=== PATIENT | male | born 1985 | race Caucasian/White ===

== ENCOUNTER 2016-05-18 09:11 | Emergency (ER) | payer BC ==
[2016-05-18 09:32] VITALS: BP 122/70
--- NOTE | 2016-05-18 11:03 | RAD ---
HISTORY: Chronic cough COMPARISONS: None VIEWS: 2: Frontal dual-energy and lateral views of the chest. FINDINGS: CARDIOMEDIASTINAL SILHOUETTE: The cardiomediastinal silhouette is normal. PK: The pk are normal. PLEURA: The costophrenic angles are sharp. No pleural abnormalities are noted. LUNG PARENCHYMA: The lungs are clear. ABDOMEN: The upper abdomen is clear. There is no subphrenic gas. BONES AND SOFT TISSUES: No bone or soft tissue abnormalities are noted. OTHER: None. IMPRESSION: NO ACTIVE CARDIOPULMONARY DISEASE.
--- NOTE | 2016-05-18 11:39 | UC ---
Respiratory Complaint HPI - HPI Summary HPI Summary: PT WITH OVER 6 MONTH OF CHRONIC DRY COUGH. NO OTHER RESP SX. NO CONGESTION, ST, WHEEZE. NON SMOKER. ALSO C/O INTERMITTENT NAUSEA. FEELS LIKE "HIS STOMACH IS POISONED". NO FEVER. NO ASSOCIATION WITH FOOD. HAS REFLUX BUT STATES THIS FEELS DIFFERENT. 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 - History of Current Complaint Chief Complaint: UCGeneralIllness Stated Complaint: CHEST CONGESTION, AND COUGH Time Seen by Provider: 05/18/16 10:20 Hx Obtained From: Patient Onset/Duration: Gradual Onset, Lasting Weeks, Still Present Timing: Intermittent Episodes Severity Initially: Moderate Severity Currently: Moderate Pain Intensity: 0 Pain Scale Used: 0-10 Numeric Character: Cough: Nonproductive Aggravating Factors: Nothing Alleviating Factors: Nothing Associated Signs And Symptoms: Negative: Dyspnea, Fever, Chills, Pleuritic Chest Pain, Wheezing, Hemoptysis, Dizziness, Calf Pain, Calf Swelling, Nasal Congestion, Hoarseness, Sinus Discomfort - Allergies/Home Medications Allergies/Adverse Reactions: Allergies Allergy/AdvReac Type Severity Reaction Status Date / Time Lactose Intolerance (GI) Allergy GI Upset Verified 05/18/16 09:33 Home Medications: Home Medications Ranitidine HCl [Zantac 75] 75 mg PO DAILY 05/18/16 [History Confirmed 05/18/16] PMH/Surg Hx/FS Hx/Imm Hx Endocrine History Of: Denies: Diabetes, Thyroid Disease Cardiovascular History Of: Denies: Cardiac Disorders, Hypertension Respiratory History Of: Reports: Asthma Denies: COPD GI/ History Of: Denies: Ulcer - Surgical History Surgical History: None - Family History Known Family History: Negative: Cardiac Disease, Hypertension, Diabetes - Social History Alcohol Use: None Substance Use Type: None Smoking Status (MU): Never Smoked Tobacco Review of Systems Constitutional: Negative Respiratory: Cough Cardiovascular: Negative Gastrointestinal: Abdominal Pain, Other - NAUSEA All Other Systems Reviewed And Are Negative: Yes Physical Exam Triage Information Reviewed: Yes Appearance: Well-Appearing, No Pain Distress, Well-Nourished Vital Signs: Initial Vital Signs Temp 98.1 F 05/18/16 09:26 Pulse 64 05/18/16 09:26 Resp 16 05/18/16 09:26 BP 122/70 05/18/16 09:26 Pulse Ox 98 05/18/16 09:26 Vital Signs Reviewed: Yes Eyes: Positive: Conjunctiva Clear ENT: Positive: Hearing grossly normal, Pharynx normal, TMs normal Neck: Positive: Supple, Nontender, No Lymphadenopathy Respiratory Exam: Normal Cardiovascular Exam: Normal Abdomen Description: Positive: Nontender, Soft. Negative: CVA Tenderness (R), CVA Tenderness (L), Distended, Guarding Bowel Sounds: Positive: Present Musculoskeletal: Positive: No Edema Neurological: Positive: Alert Psychological: Positive: Age Appropriate Behavior Skin: Negative: rashes UC Diagnostic Evaluation - Laboratory O2 Sat by Pulse Oximetry: 98 Respiratory Course/Dx - Course Course Of Treatment: DUE TO LANGUAGE BARRIER EXTREMELY DIFFICULT TO OBTAIN DETAILED HISTORY FROM PATIENT. OFFERED TO USE HAIR SALON MANAGER SERVICE AND HE DECLINED. WILL TEST AND TREAT TO COVER POSSIBLE PERTUSSIS. ALBUTEROL INHALER NEEDED. FOLLOW-UP WITH PCP. REVIEWED US FROM 12/03/15. PT WITH BENIGN APPEARING HEMANGIOMA IN LIVER. NEEDS 6 MONTH FOLLOW-UP US. ADVISED PT TO SCHEDULE THIS THROUGH PCP OR GI. REFERRED TO GI FOR FURTHER EVAL OF ABD PAIN. - Differential Dx/Diagnosis Provider Diagnoses: 1. CHRONIC COUGH. 2. ABDOMINAL PAIN, NOS Discharge - Discharge Plan Condition: Stable Disposition: HOME Prescriptions: Albuterol HFA INHALER* [Ventolin HFA Inhaler*] 2 puff INH Q4H PRN #1 mdi PRN Reason: Shortness Of Breath Azithromyxin CHRISTIAN (NF) [Z-Christian (Zithromax) 250 mg tabs #6] 2 tab PO .TODAY, THEN 1 DAILY #6 tab Patient Education Materials: Chronic Cough (ED), Abdominal Pain (ED) Referrals: Matthew Christensen MD [Medical Doctor] - 2 Weeks Max Blake MD [Primary Care Provider] - 1 Week Additional Instructions: SWAB FOR PERTUSSIS DONE TODAY GIVEN YOUR CHRONIC COUGH. WILL TX WITH AZITH AND INHALER. CHEST XRAY WAS UNREMARKABLE. FOLLOW-UP WITH YOUR PRIMARY DOCTOR. YOU MAY BENEFIT FROM LUNG FUNCTION TESTING. CALL DR. CHRISTENSEN (GI) FOR AN APPT IN THE NEXT 2-3 WEEKS TO EVALUATE FOR YOUR CONTINUED ABDOMINAL PAIN. BE SURE TO SCHEDULE THE FOLLOW-UP ULTRASOUND TO RE-EVALUATE THE LESION IN YOUR LIVER SEEN ON ULTRASOUND IN 2015. THIS COULD BE ORDERED BY EITHER YOUR PRIMARY DOCTOR OR THE GI DOCTOR.
== END 2016-05-18 11:38 | disposition home or self-care (01) ==
LOC: UCEAST 09:11
DX: R05 Cough (principal); R10.9 Unspecified abdominal pain; R11.0 Nausea; J45.909 Unspecified asthma, uncomplicated
CPT/HCPCS: 71020; 87798; 99212; G0463

== ENCOUNTER 2018-01-03 18:02 | Emergency (ER) | payer BC ==
[2018-01-03 18:46] VITALS: BP 133/85
--- NOTE | 2018-01-03 19:25 | UC ---
UC General HPI - HPI Summary HPI Summary: Pt presents with c/o nasal pain, occasional MIN, occasional "stomach ache" X 6 months. 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 Pt has lived in [place] for 8 years. Pt states that he was seen by a "nose specialist before" and was told to apply olive oil inside his nostrils to keep them clean Pt denies fever, chills, nausea, vomiting, constipation, weight loss, diarrhea, BRBPR, dysuria, unilateral weakness, change in vision, recent injury or trauma, or epistaxis. Pt did report that he does not have any social contacts in the area but denies any depression like symptoms. - History of Current Complaint Stated Complaint: CONGESTED Time Seen by Provider: 01/03/18 18:19 Hx Obtained From: Patient Onset/Duration: Gradual Onset, Lasting Weeks Timing: Intermittent Episodes Lasting: Onset Severity: Moderate Current Severity: None Pain Intensity: 5 Associated Signs & Symptoms: Positive: Abdominal Pain, Headache - Allergy/Home Medications Allergies/Adverse Reactions: Allergies Allergy/AdvReac Type Severity Reaction Status Date / Time MS Lactose Intolerance (GI) Allergy GI Upset Verified 05/18/16 09:33 [Lactose Intolerance (GI)] PMH/Surg Hx/FS Hx/Imm Hx Previously Healthy: Yes - Surgical History Surgical History: None - Family History Known Family History: Negative: Cardiac Disease, Hypertension, Diabetes - Social History Occupation: Employed Full-time Lives: Alone Alcohol Use: Occasionally Substance Use Type: None Smoking Status (MU): Never Smoked Tobacco Have You Smoked in the Last Year: No Review of Systems All Other Systems Reviewed And Are Negative: Yes Constitutional: Positive: Fatigue - occasional Skin: Positive: Negative Eyes: Positive: Negative ENT: Positive: Sinus Pain/Tenderness Respiratory: Positive: Negative Cardiovascular: Positive: Negative Gastrointestinal: Positive: Negative Genitourinary: Positive: Negative Motor: Positive: Negative Neurovascular: Positive: Negative Musculoskeletal: Positive: Negative Neurological: Positive: Headache Psychological: Positive: Negative Is Patient Immunocompromised?: No Physical Exam Triage Information Reviewed: Yes Appearance: Well-Appearing Vital Signs: Initial Vital Signs Temp 98.4 F 01/03/18 18:38 Pulse 63 01/03/18 18:38 Resp 16 01/03/18 18:38 BP 133/85 01/03/18 18:38 Pulse Ox 98 01/03/18 18:38 Vital Signs Reviewed: Yes Eye Exam: Normal ENT Exam: Normal Dental Exam: Normal Neck exam: Normal Respiratory Exam: Normal Cardiovascular Exam: Normal Musculoskeletal Exam: Normal Neurological Exam: Normal Psychological Exam: Normal Skin Exam: Normal Course/Dx - Course Course Of Treatment: I offered the pt water service supervisor services but pt declined. - Diagnoses Provider Diagnosis: Chronic nasal congestion, Headache, Abdominal pain of unknown cause Discharge - Sign-Out/Discharge Documenting (check all that apply): Patient Departure All imaging exams completed and their final reports reviewed: No Studies - Discharge Plan Condition: Stable Disposition: HOME Prescriptions: Cetirizine* [ZyrTEC 10 MG TAB*] 10 mg PO DAILY #10 tab Mupirocin 2% OINT* [Bactroban 2 % Oint*] 1 applic TOPICAL BEDTIME 10 Days #1 tube Patient Education Materials: General Headache (ED), Warm Compress or Soak (ED) Referrals: [facility] [Outside] - If Needed Max Blake MD [Primary Care Provider] - As Soon As Possible - Billing Disposition and Condition Condition: STABLE Disposition: Home
== END 2018-01-03 19:40 | disposition home or self-care (01) ==
LOC: UCEAST 18:02
DX: R09.81 Nasal congestion (principal); R51 Headache; R10.84 Generalized abdominal pain
CPT/HCPCS: 99212; G0463